=== PATIENT | male | born 1945 | race Caucasian/White ===

== ENCOUNTER 2016-08-27 11:53 | Emergency (ER) | payer MEDICARE ==
[~2016-08-27] VITALS: Ht 180.3 cm; Wt 93.9 kg
[~2016-08-27 11:53] MED LIST: ASPI-COR81 M1 PO; LISINOPRIL10 MG PO; SIMVASTATIN40 MG PO; TAMSULOSIN HYD0.4 M1 PO; ZYRTEC 10MG TAB10 MG PO
--- NOTE | 2016-08-27 12:05 | Emergency Room Report ---
History of Present Illness Time Seen by [id number] Presenting Problem in Triage Pt arrived:Walked Presenting Problem:PATIENT STATES HE INJURIED HIS LEFT CALF PLAYING BALL. 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 N Clinical Suspician of Infection? N Mental Status: 1 - Regular (Normal Baseline) Sepsis Risk:Possible Sepsis Risk Have you (or family members/close friends) recently traveled outside the [place]? N If Yes, where/when: Have you had exposure to infectious disease within the past month? TB? Other? Specify: Source patient, RN notes reviewed, family, RN/MD Exam Limitations no limitations Comment This is 71-year-old male patient presented emergency room with LEFT calf pain developed just half an hour prior to arrival while playing pickle ball. She denies any other injuries. He is walking with a limp, his LEFT calf is swollen and tender to palpation ALLERGIES Coded Allergies: No Known Allergies (08/27/16) Home Medications Reported Medications Lisinopril 10 MG PO DAILY #30 Simvastatin (Simvastatin 40MG Tab) 40 MG PO DAILY #30 TAMSULOSIN HCL (Tamsulosin HCl) 0.4 MG PO QHS #30 Aspirin (Aspi-Cor) 81 MG PO DAILY Cetirizine Hcl (All Day Allergy) 10 MG PO DAILY History Medical History General Angina: No AR: No Hypertension? Yes Hyperlipidemia? No CHF? No COPD? No Asthma? No CVA? No Seizures? No Diabetes? No GB Disease: No MRSA? No TB? No Cancer? No Immunization Hx DT/Tetanus Unknown Surgical Hx Previous Surgery?Y VASECTOMY Hernia Oral Surgery COLONOSCOPY Family History Family Hx Diabetes No CAD No Hypertension Yes Hyperlipidemia No Cancer Yes TB No Social History Smoking Hx Smoker: Never Smoker Tobacco: No Alcohol Alcohol: No Review of Systems All Other Systems Reviewed and Negative Musculoskeletal muscle pain (left calf) Physical Exam Vital Signs Vital Signs Date Time Temp Pulse Resp B/P Pulse O2 O2 Flow FiO2 Ox Delivery Rate 08/27 1256 98.3 87 20 137/91 95 08/27 1200 98.3 95 20 127/83 95 General Appearance normal appearance, WD/WN, no apparent distress Neck normal inspection, non-tender, supple, full range of motion Respiratory Status Yes: trachea midline, chest symmetrical, non tender chest. No: respiratory distress. Lung Sounds bilateral: normal breath sounds, lungs clear. 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 No Comment Advised patient results obtained, need to avoid weightbearing on the LEFT lower extremity, keep an ice pack over his LEFT calf, and an Tulio wrap as well in place. Patient directed to local orthopedic surgeon for further workup. Results/Orders Orders Procedure Date/time Status STABILIZE JOINT 08/27 1250 Active XRAY/CT/US XRAY/CT/US Ultrasound lower extremity (left) US Interpretation by discussed w/radiologist US results muscle fiber tear Departure Departure Time of Disposition 1249 Disposition DC Home or Self Care(routine) Clinical Impression Primary Impression: Muscle tear Condition STABLE Referrals COLLEEN SILVA, JUAN PABLO TELLEZ: Tomorrow-Call Office as already scheduled Patient Instructions Calf Muscle Strain Additional Instructions Please avoid weightbearing on the LEFT lower extremity, apply ice packs locally, keep the Tulio wrap in place, follow-up with Dr. Rosa tomorrow at 9:15 AM. Discharge Counseling Counseled pt/family regarding diagnosis, test results, medications/RX, home care, follow up needs Comment Please avoid weightbearing on the LEFT lower extremity, apply ice packs locally, keep the Tulio wrap in place, follow-up with Dr. Rosa tomorrow at 9:15 AM. ED Critical Care Critical Care No at [id number]
[2016-08-27 12:56] VITALS: BP 137/91
--- NOTE | 2016-08-27 12:56 | CARDIOVASCULAR REPORT ---
"Venous Exam Indications: 729.5 Pain in limb. IMPRESSIONS 1. There is no evidence of significant Reflux. 2. No evidence of deep or superficial vein thrombosis involving the left lower extremity History: Left lower extremity pain. Left lower extremity venous duplex evaluation. Doppler flow study including spectral analysis, color and mijares scale imaging. Location: Vascular laboratory. Patient status: Emergency department. CRITICAL FINDINGS - Reported to: Dr Armstrong - Read back and verified. - 08/27/16 - 1220 - Neg Incidental findings: Muscle strain, tear, trauma is noted incidentally on the left. Tables: Venous flow and imaging: + +-------+ + |Location |Overall|Flow properties | + +-------+ + |Left common femoral |Patent |Normal phasicity; spontaneous; | | | |normal augmentation; compressible | + +-------+ + |Left saphenofemoral junction|Patent |Compressible | + +-------+ + |Left profunda femoral |Patent |Compressible | + +-------+ + |Left femoral |Patent |Normal phasicity; spontaneous; | | | |normal augmentation; compressible | + +-------+ + |Left greater saphenous |Patent |Normal phasicity; spontaneous; | | | |normal augmentation; compressible | + +-------+ + |Left popliteal |Patent |Normal phasicity; spontaneous; | | | |normal augmentation; compressible | + +-------+ + |Left posterior tibial |Patent |Compressible | + +-------+ + |Left peroneal |Patent |Compressible | + +-------+ + |Left gastrocnemius |Patent |Compressible | + +-------+ + |Left soleal |Patent |Compressible | + +-------+ + (Report amended ) Electronically signed by: He Florence [id number]"
== END 2016-08-27 12:56 | disposition home or self-care (01) ==
LOC: ER 11:53
DX: S86.812A Strain of other muscle(s) and tendon(s) at lower leg level, left leg, initial encounter (principal); X50.3XXA Overexertion from repetitive movements, initial encounter; Y93.69 Activity, other involving other sports and athletics played as a team or group; Y92.838 Other recreation area as the place of occurrence of the external cause; M79.662 Pain in left lower leg